=== PATIENT | female | born 1990 | race Caucasian/White ===

== ENCOUNTER 2017-02-12 22:49 | Emergency (ER) | payer BC ==
[~2017-02-12] VITALS: Ht 170.2 cm; Wt 54.4 kg
[2017-02-12 22:53] VITALS: BP_SYST 113
[2017-02-12] MEDS ORDERED: AZITHROMYCIN 250 MG TABLET PO ONE (23:45)
[2017-02-12 23:58] VITALS: BP_SYST 110
== END 2017-02-12 23:58 | disposition home or self-care (01) ==
LOC: SED 22:49
DX: J02.9 Acute pharyngitis, unspecified (principal); H93.8X3 Other specified disorders of ear, bilateral
CPT/HCPCS: 99283; Q0144